=== PATIENT | male | born 1955 | race Two or more races ===

== ENCOUNTER 2018-04-20 17:14 | Emergency (ER) | payer SELFPAY ==
[~2018-04-20] VITALS: Ht 182.9 cm; Wt 93.6 kg
[2018-04-20] MEDS ORDERED: IBUPROFEN 600MG TABLET PO ONE (17:45)
[2018-04-20 18:36] VITALS: BP 138/86
== END 2018-04-20 19:06 | disposition home or self-care (01) ==
LOC: ER 17:14
DX: M25.571 Pain in right ankle and joints of right foot (principal); E11.9 Type 2 diabetes mellitus without complications; F17.200 Nicotine dependence, unspecified, uncomplicated
CPT/HCPCS: 73610; 99284